=== PATIENT | male | born 1955 | race African-American/Black ===

== ENCOUNTER 2020-03-15 21:59 | Emergency (ER) | payer OTHER ==
[~2020-03-15] VITALS: Ht 165.1 cm; Wt 65.9 kg
[~2020-03-15 21:59] MED LIST: LEVO100 PO; METF-960 PO
[2020-03-16 03:03] VITALS: BP 153/88
== END 2020-03-16 04:46 | disposition home or self-care (01) ==
LOC: EMS 21:59
DX: S63.601A Unspecified sprain of right thumb, initial encounter (principal); E11.9 Type 2 diabetes mellitus without complications; F17.210 Nicotine dependence, cigarettes, uncomplicated; Z79.84 Long term (current) use of oral hypoglycemic drugs; Y04.2XXA Assault by strike against or bumped into by another person, initial encounter; Y93.89 Activity, other specified; Y92.89 Other specified places as the place of occurrence of the external cause; Y99.8 Other external cause status

== ENCOUNTER 2020-06-04 01:12 | Emergency (ER) | payer OTHER ==
[~2020-06-04] VITALS: Ht 172.7 cm; Wt 68.2 kg
[2020-06-04] MEDS ORDERED: IBUPROFEN 800 MG TABLET PO ONE (02:30)
[2020-06-04 03:30] VITALS: BP 143/94
== END 2020-06-04 04:00 | disposition home or self-care (01) ==
LOC: EMS 01:13
DX: S93.402A Sprain of unspecified ligament of left ankle, initial encounter (principal); X58.XXXA Exposure to other specified factors, initial encounter; Y93.89 Activity, other specified; Y92.89 Other specified places as the place of occurrence of the external cause; Y99.8 Other external cause status
CPT/HCPCS: 99284

== ENCOUNTER 2020-07-18 23:57 | Emergency (ER) | payer OTHER ==
[~2020-07-18] VITALS: Ht 160 cm; Wt 74.5 kg
[2020-07-19] MEDS ORDERED: ACETAMINOPHEN 500 MG TABLET PO ONE (02:00)
[2020-07-19 02:16] LABS: COVID AG,FIA SOURCE NASOPHARYNGEAL
[2020-07-19 05:05] VITALS: BP 139/89
== END 2020-07-19 06:00 | disposition home or self-care (01) ==
LOC: EMS 23:58
DX: J18.0 Bronchopneumonia, unspecified organism (principal); R07.89 Other chest pain; E11.9 Type 2 diabetes mellitus without complications; F17.210 Nicotine dependence, cigarettes, uncomplicated; G89.29 Other chronic pain; Z20.822 Contact with and (suspected) exposure to COVID-19; Z59.0 Homelessness; Z79.84 Long term (current) use of oral hypoglycemic drugs
CPT/HCPCS: 71045; 87426; 93005; 99284; 99285; 99406